=== PATIENT | male | born 1960 | race Caucasian/White ===

== ENCOUNTER 2019-05-17 15:37 | Inpatient (IN) | payer OTHER ==
[2019-05-17] VITALS (37 sets, daily range): BP systolic 164; BP diastolic 120; PULSE 77; TEMP 98.4; O2SAT 70–96
[~2019-05-17] VITALS: Ht 172.7 cm; Wt 99.7 kg
[~2019-05-17 15:37] MED LIST: CATAPRES 0.1MG0.1 MG PO; DAZIDOX10 MG PO; KADIAN100 MG PO; LEVAQUIN 5500 MG/TA1 PO; MS CONTIN100 MG PO; ROXICODONE30 MG PO
[2019-05-17] MEDS ORDERED: XANAX 1MG1 MG PO (16:44)
[2019-05-17 16:59] LABS: BASO % 0.5 % (0.0-2.0); EOS # 0.1 (0.0-0.7); EOS % 0.8 % (0-4.0); GRAN # 5.1 (1.4-6.5); GRAN % 77.3 % (42.2-75.2); HEMATOCRIT 50.8 % (42.0-52.0); HEMOGLOBIN 17.3 g/dl (13.5-18.0); LYMPH # 0.8 (1.2-3.4); LYMPH % 12.7 % (20.0-51.0); MEAN CELL VOLUME 88 fl (80.0-100.0); MEAN CORPUSCULAR HEMOGLOBIN 30 pg (27.0-31.0); MEAN CORPUSCULAR HGB CONC 34 g/dl (33.0-37.0); MEAN PLATELET VOLUME 9.8 fl (7.4-10.4); MONO # 0.6 (0.1-0.6); MONO % 8.5 % (1.7-9.3); PLATELET COUNT 252 K/mm3 (130-400); RED BLOOD COUNT 5.75 M/mm3 (4.20-5.60); REDCELL DISTRIBUTION WIDTH-CV 13.5 % (11.5-14.5)
[2019-05-17 17:11] LABS: ALBUMIN 4.1 gm/dL (3.5-5.0); BILIRUBIN,TOTAL 1.4 mg/dL (0.0-1.0); C-REACTIVE PROTEIN 4.7 mg/dL (0.0-0.9); CALCIUM 8.9 mg/dL (8.4-10.2); CREATININE, serum 1.17 (0.66-1.25); POTASSIUM 4.7 mmol/L (3.4-5.0); TOTAL PROTEIN 7.7 gm/dL (6.4-8.2)
[2019-05-17 17:50] LABS: COLLECTION METHOD CLEAN CATCH
[2019-05-17 17:59] LABS: MUCOUS Present /lpf; PH 6 (5-8); SQUAMOUS EPITHELIAL None Seen /hpf; URINE APPEARANCE Clear; URINE BACTERIA None Seen /hpf; URINE BILIRUBIN Negative (NEGATIVE); URINE BLOOD Negative (NEGATIVE); URINE COLOR Yellow; URINE GLUCOSE 3+ (NEGATIVE); URINE KETONE Trace (NEGATIVE); URINE LEUKOCYTE ESTERASE Negative (NEGATIVE); URINE NITRATE Negative (NEGATIVE); URINE PROTEIN(semi-quant) 2+ (NEGATIVE); URINE RBC 0-2 /hpf; URINE UROBILINOGEN Negative (NEGATIVE)
[2019-05-17] MEDS ORDERED: DAZIDOX10 MG PO (22:56)
[2019-05-17] MEDS ORDERED: PROAIR HFA0.09 MG/AC IH (22:57)
[2019-05-18] VITALS (514 sets, daily range): BP systolic 135–155; BP diastolic 77–95; PULSE 74–93; TEMP 97.5–98.9; O2SAT 85–97
--- NOTE | 2019-05-18 00:21 | NUR ---
PT ADMITTED TO [facility] 17 FROM ED, C/O HEADACHE, AND ABD PAIN, PAIN MED WAS GIVEN. BPs REMAIN ELEVATED, PAIN MEDS AND HYDRALAZINE GIVED. CONSENT SIGHED FOR PROCEDURE IN AM. DAVID HAYDEN CAME TO BED SIDE TO ASSESS. CURRENTLY BP IS 153/95. WILL CONTINUE TO MONITOR PT STATUS AND UPDATE PROVIDERS NEEDED.
[2019-05-18 01:05] LABS: TROPONIN-I < 0.012 ng/mL (0.000-0.035)
[2019-05-18 03:40] LABS: BASO % 0.5 % (0.0-2.0); EOS # 0.1 (0.0-0.7); EOS % 1.1 % (0-4.0); GRAN # 5.2 (1.4-6.5); GRAN % 69.1 % (42.2-75.2); HEMATOCRIT 48.1 % (42.0-52.0); HEMOGLOBIN 16.3 g/dl (13.5-18.0); LYMPH # 1.4 (1.2-3.4); LYMPH % 18.8 % (20.0-51.0); MEAN CELL VOLUME 89 fl (80.0-100.0); MEAN CORPUSCULAR HEMOGLOBIN 30 pg (27.0-31.0); MEAN CORPUSCULAR HGB CONC 34 g/dl (33.0-37.0); MEAN PLATELET VOLUME 9.5 fl (7.4-10.4); MONO # 0.8 (0.1-0.6); MONO % 10.2 % (1.7-9.3); PLATELET COUNT 219 K/mm3 (130-400); RED BLOOD COUNT 5.43 M/mm3 (4.20-5.60); REDCELL DISTRIBUTION WIDTH-CV 13.5 % (11.5-14.5)
[2019-05-18 04:02] LABS: ALBUMIN 3.8 gm/dL (3.5-5.0); BILIRUBIN,TOTAL 1.7 mg/dL (0.0-1.0); CALCIUM 8.4 mg/dL (8.4-10.2); CREATININE, serum 1.21 (0.66-1.25); POTASSIUM 4.1 mmol/L (3.4-5.0); TOTAL PROTEIN 6.9 gm/dL (6.4-8.2)
[2019-05-18 05:10] LABS: INR 1.2 (0.8-3.0); PROTHROMBIN TIME 13.6 SECONDS (9.7-12.8)
--- NOTE | 2019-05-18 07:09 | NUR ---
PT OFF THE UNIT TO OR.
--- NOTE | 2019-05-18 09:33 | NUR ---
OR report received from SCOTT Raymond at this time.
--- NOTE | 2019-05-18 09:45 | NUR ---
Patient returns to [facility] 17 via bed by WELDING MACHINE OPERATOR [employer] with no complications. Vital signs are stable. Full assessment completed. Call light placed within reach. Bed in lowest position. Side rails up x3. Patient states he has some abdominal pain. Abdominal dressing is clean, dry, and intact. Patient has no other complaints or concerns at this time.
--- NOTE | 2019-05-18 13:10 | NUR ---
Patient report given to Chetna, construction grip at this time.
--- NOTE | 2019-05-18 13:45 | NUR ---
Patient transferred to room 325 via wheelchair by RN with no complications. Patient transferred with all personal belongings.
--- NOTE | 2019-05-18 13:50 | NUR ---
arrived on unit per WC from [facility], transferred with standby assist from to bed,
--- NOTE | 2019-05-18 14:15 | NUR ---
full assessment completed, see interventions for further info, medicated with scheduled xanax 1mg, c/o abdominal pain and requesting pain medication, explained it was too early for more roxicodone and requesting something else if ordered
--- NOTE | 2019-05-18 15:00 | NUR ---
medicated with dilaudid 0.25mg slow IV for c/os abdominal pain, watching TV
--- NOTE | 2019-05-18 15:40 | NUR ---
appears to be sleeping, in bed with eyes closed, resp quiet and easy
--- NOTE | 2019-05-18 17:15 | NUR ---
c/o pain to abdomen and back, medicated with roxicodone 40mg po, has supper tray and will try to eat but states he will need to wait until pain has decreased
--- NOTE | 2019-05-18 18:15 | NUR ---
is requesting inhaler, cardiopulmonary notified
--- NOTE | 2019-05-18 18:59 | NUR ---
bedside shift report given to SCOTT Pichardo
--- NOTE | 2019-05-18 21:14 | NUR ---
Patient medicated with IV Dilaudid 0.25mg for abdominal pain 03/02. Takes walk in hallway with surgical staff and does well. IVF to right AC without redness or swelling.
--- NOTE | 2019-05-18 23:22 | NUR ---
Reports pain to abdomen and back 03/02, asking for Oxycodone. Medicated at this time with 40mg po. IVF infusing to right AC without redness or swelling.
[2019-05-19 03:20] VITALS: BP 133/80; PULSE 62; TEMP 98.1
--- NOTE | 2019-05-19 03:35 | NUR ---
Patient reports pain 9/10 to abdomen. Medicated with IV Dilaudid 0.25mg at this time.
--- NOTE | 2019-05-19 04:31 | NUR ---
Patient asking for more pain meds as he coughed and didn't splint his abdomen. Too early for pain meds at this time. Will bring Oxycodone at 0520. Patient verbalizes understanding.
--- NOTE | 2019-05-19 05:20 | NUR ---
Medicated with Oxycodone 40mg po at this time for pain 9/10 to abdomen.
[2019-05-19 07:37] LABS: GRAN % 83.4 % (42.2-75.2); HEMATOCRIT 46.9 % (42.0-52.0); HEMOGLOBIN 15.7 g/dl (13.5-18.0); LYMPH # 0.8 (1.2-3.4); LYMPH % 9.2 % (20.0-51.0); MEAN CELL VOLUME 90 fl (80.0-100.0); MEAN CORPUSCULAR HEMOGLOBIN 30 pg (27.0-31.0); MEAN CORPUSCULAR HGB CONC 34 g/dl (33.0-37.0); MEAN PLATELET VOLUME 9.9 fl (7.4-10.4); MONO # 0.6 (0.1-0.6); MONO % 6.9 % (1.7-9.3); PLATELET COUNT 240 K/mm3 (130-400); RED BLOOD COUNT 5.21 M/mm3 (4.20-5.60); REDCELL DISTRIBUTION WIDTH-CV 13.2 % (11.5-14.5)
[2019-05-19 07:54] VITALS: BP 169/96; PULSE 94; TEMP 98.5
[2019-05-19 07:57] LABS: ALBUMIN 3.8 gm/dL (3.5-5.0); BILIRUBIN,TOTAL 1.5 mg/dL (0.0-1.0); CALCIUM 8.1 mg/dL (8.4-10.2); CREATININE, serum 1.22 (0.66-1.25); POTASSIUM 4.4 mmol/L (3.4-5.0)
[2019-05-19] MEDS ORDERED: METFORMIN PO (10:53)
[2019-05-19] MEDS ORDERED: DAZIDOX10 MG PO ×2 (10:56→12:59)
[2019-05-19] MEDS ORDERED: AMOXICILLIN 8751 TAB PO (10:56)
[2019-05-19 11:22] VITALS: BP 181/115; PULSE 84; TEMP 97.8
[2019-05-19] MEDS ORDERED: MOTRIN 600600 MG/TAB PO (12:39)
[2019-05-19] MEDS ORDERED: DILAUDID 2MG TAB2 MG PO (12:39)
--- NOTE | 2019-05-19 13:35 | NUR ---
Clinical Education Coordinator met with patient to discuss discharge planning. Patient expresses he is ready to go home and his son, Wayne can only pick him up if it's before 1:00pm. Patient states he receives primary care services from [facility] in [place]. Patient reports his medications are delievered to his home in [place], [place] by the [facility]. Patient reports he does obtain one medication from [facility] pharmacy but that he wants to switch pharmacies soon. Patient has a knee brace and crutch that he occasionally uses as needed. Patient does not have advance directives and was not interested in setting up DPOA-HC at this time. Patient plans to return home upon discharge.
--- NOTE | 2019-05-19 13:39 | NUR ---
[employer] Systems Superintendent attended clinical rounds with the team. Patient ready to discharge pending being seen by Dr. Smith. Patient is working with his son to arrange transportation. Patient to return home upon discharge.
--- NOTE | 2019-05-19 13:45 | NUR ---
Patient's main complaint today has been pain. Patient is a chronic pain patient, he has a long history of narcotic use. Hospitalist team & aware of pain medication complaints & usage. Hospitalist team had a long discussion with patient & stressed the [facility] scheduled regaurding blood pressure,(he did not want to take medication in the hospital to manage BP) diabeties- patient going to resume his home metformin-however he is unsure of dosage. Patient frustrated & upset doctors will not prescribe him and extra oxycodone-educated him on seeing his PCP who he reports prescribes him his large dosages. Once again hospitalist & notified & made aware of his frustrations. Patient send with Dilaudid script as ordered. I stressed the importance of medication safety, patient not interested in hearing my discharge teaching, he was more concerned with his narcotics. Patient aware he needs to be seen in 2 weeks to follow up with surgery. Incisions care & signs & symptoms of infection discussed. New dressing applied to umbilical saud. Int DC. Patient wheeled out with all belongings, MOLDER CLOSED MOLDS walked him out, His sone taking him home.
== END 2019-05-19 15:18 | disposition home or self-care (01) | DRG 354 ==
LOC: COL.ER 15:37 → IMCU 19:54 → SURG 05-18 13:45
PROVIDERS: Emergency Medicine; Nurse Practitioner Family; Physician Assistant; Surgery; ADMIT Student in an Organized Health Care Education/Training Program
PROC: 0WPF0JZ Removal of Synthetic Substitute from Abdominal Wall, Open Approach (ICD-10-PCS; 2019-05-18)
PROC: 0WQF0ZZ Repair Abdominal Wall, Open Approach (ICD-10-PCS; principal; 2019-05-18 07:30)
DX: K42.0 Umbilical hernia with obstruction, without gangrene (principal); L02.211 Cutaneous abscess of abdominal wall; T81.31XA Disruption of external operation (surgical) wound, not elsewhere classified, initial encounter; K91.870 Postprocedural hematoma of a digestive system organ or structure following a digestive system procedure; I10 Essential (primary) hypertension; E11.65 Type 2 diabetes mellitus with hyperglycemia; I16.0 Hypertensive urgency; G89.29 Other chronic pain; Z88.5 Allergy status to narcotic agent; Z88.8 Allergy status to other drugs, medicaments and biological substances; Z86.14 Personal history of Methicillin resistant Staphylococcus aureus infection
CPT/HCPCS: 99222-AI; 99239; J0360; J0690; J1100; J1170; J1815; J1885; J2250; J2405; J2543; J2704; J3010; J7030; Q9967

== ENCOUNTER 2019-12-01 20:37 | Emergency (ER) | payer OTHER ==
[~2019-12-01] VITALS: Ht 172.7 cm; Wt 90.9 kg
[~2019-12-01 20:37] MED LIST changes: +AMOXICILLIN 8751 TAB PO; +DILAUDID 2MG TAB2 MG PO; +METFORMIN PO; +MOTRIN 600600 MG/TAB PO; +PROAIR HFA0.09 MG/AC IH; +XANAX 1MG1 MG PO
[2019-12-01 21:03] VITALS: TEMP 98.6
[2019-12-01] MEDS ORDERED: BLOOD PRESSURE MED PO (22:03)
[2019-12-01 22:04] VITALS: BP 188/141; PULSE 100
[2019-12-01] MEDS ORDERED: DOXYCYCLINE 10100 MG PO (22:08)
== END 2019-12-01 22:09 | disposition home or self-care (01) ==
LOC: COL.ER 20:37
DX: S50.861A Insect bite (nonvenomous) of right forearm, initial encounter (principal); I10 Essential (primary) hypertension; F43.10 Post-traumatic stress disorder, unspecified; Z91.14 Patient's other noncompliance with medication regimen; W57.XXXA Bitten or stung by nonvenomous insect and other nonvenomous arthropods, initial encounter

== ENCOUNTER 2019-12-04 22:11 | Inpatient (IN) | payer OTHER ==
[~2019-12-04] VITALS: Ht 172.7 cm; Wt 91.2 kg
[~2019-12-04 22:11] MED LIST changes: +BLOOD PRESSURE MED PO; +DOXYCYCLINE 10100 MG PO
[2019-12-04 22:54] LABS: MEAN CELL VOLUME 81 fl (80.0-100.0); MEAN CORPUSCULAR HGB CONC 36 g/dl (33.0-37.0); MEAN PLATELET VOLUME 9.7 fl (7.4-10.4); PLATELET COUNT 305 K/mm3 (130-400); RED BLOOD COUNT 6.76 M/mm3 (4.20-5.60); REDCELL DISTRIBUTION WIDTH-CV 13.2 % (11.5-14.5)
[2019-12-04 22:59] LABS: HEMATOCRIT 54.8 % (42.0-52.0); HEMOGLOBIN 19.9 g/dl (13.5-18.0); MEAN CORPUSCULAR HEMOGLOBIN 29 pg (27.0-31.0)
[2019-12-04 23:06] LABS: ALBUMIN 4.6 gm/dL (3.5-5.0); BILIRUBIN,TOTAL 4.2 mg/dL (0.0-1.0); C-REACTIVE PROTEIN 1.7 mg/dL (0.0-0.9); CALCIUM 11.5 mg/dL (8.4-10.2); POTASSIUM 3.6 mmol/L (3.4-5.0); TOTAL PROTEIN 8.1 gm/dL (6.4-8.2)
[2019-12-04 23:12] LABS: HEMOGLOBIN A1C 8.9 %
[2019-12-04 23:23] LABS: LYMPHOCYTE 12 % (20.0-51.0); NEUTROPHILS 80 % (42.0-75.2); PLATELET ESTIMATE NORMAL (NORMAL)
[2019-12-04 23:32] LABS: TROPONIN-I 0.064 ng/mL (0.000-0.035)
[2019-12-04 23:43] LABS: MAGNESIUM 1.3 mg/dL (1.6-2.3); PHOSPHOROUS 5.3 mg/dL (2.5-4.5)
[2019-12-04 23:51] LABS: LACTIC ACID 2.7 mmol/L (0.4-2.0)
[2019-12-04 23:53] LABS: ALCOHOL(ethanol),MEDICAL < 10 mg/dL
[2019-12-05] VITALS (1121 sets, daily range): BP systolic 114–160; BP diastolic 84–95; PULSE 85–107; TEMP 97.9–98.5; O2SAT 77–99
[2019-12-05 00:39] LABS: ARTERIAL BLD GAS O2 SATURATION 94.5 % (92-100); ARTERIAL BLOOD GAS BASE EXCESS 1.5 (-2-2); ARTERIAL BLOOD GAS PCO2 32.7 mmHg (35-45); ARTERIAL BLOOD GAS PO2 70.8 mmHg (80-100); ARTERIAL BLOOD GAS pH 7.48 (7.35-7.45)
--- NOTE | 2019-12-05 01:45 | NUR ---
Patient arrived to the unit via stretcher; able to self transfer to ICU bed. Pleasant with staff however, has made comments to nurse such as the "feds are following me, but you know that already". This nurse stated she did not know that and patient stated "yes you do, but that's ok". Patient has also made other comments suggesting paranoia. Patient is otherwise alert and oriented. Hospitalist notified of patients comments. Will continue to monitor.
[2019-12-05 02:41] LABS: CALCIUM 10.4 mg/dL (8.4-10.2); CREATININE, serum 2.79 (0.66-1.25); POTASSIUM 3.5 mmol/L (3.4-5.0)
[2019-12-05 02:51] LABS: CREATININE, serum 2.8 (0.66-1.25)
[2019-12-05 02:53] LABS: TROPONIN-I 0.051 ng/mL (0.000-0.035)
[2019-12-05 02:53] LABS: COLLECTION METHOD CLEAN CATCH
--- NOTE | 2019-12-05 03:04 | NUR ---
Updated hospitalist regarding latest labs and patient status. Hospitalist to review chart.
[2019-12-05 03:07] LABS: HYALINE CAST >12 /lpf; MUCOUS Present /lpf; PH 5 (5-8); SQUAMOUS EPITHELIAL 0-2 /hpf; URINE APPEARANCE Cloudy; URINE BACTERIA Rare /hpf; URINE BILIRUBIN Negative (NEGATIVE); URINE BLOOD 2+ (NEGATIVE); URINE COLOR Amber; URINE GLUCOSE 2+ (NEGATIVE); URINE KETONE Trace (NEGATIVE); URINE LEUKOCYTE ESTERASE Negative (NEGATIVE); URINE NITRATE Negative (NEGATIVE); URINE PROTEIN(semi-quant) 2+ (NEGATIVE); URINE RBC 0-2 /hpf; URINE UROBILINOGEN Negative (NEGATIVE)
[2019-12-05 03:08] LABS: TRICYCLIC ANTIDEPRESS URINE NEGATIVE
[2019-12-05 03:24] LABS: FRACTIONAL EXCRETION OF NA+ 0.14 %
[2019-12-05] MEDS ORDERED: 00186-0370-20 IH (03:39)
[2019-12-05 05:44] LABS: BASO % 0.3 % (0.0-2.0); EOS % 0.3 % (0-4.0); GRAN # 7.5 (1.4-6.5); GRAN % 68.5 % (42.2-75.2); HEMATOCRIT 49.6 % (42.0-52.0); LYMPH # 2.1 (1.2-3.4); MEAN CELL VOLUME 82 fl (80.0-100.0); MEAN CORPUSCULAR HEMOGLOBIN 30 pg (27.0-31.0); MEAN CORPUSCULAR HGB CONC 36 g/dl (33.0-37.0); MEAN PLATELET VOLUME 9.9 fl (7.4-10.4); MONO # 1.2 (0.1-0.6); MONO % 11.3 % (1.7-9.3); PLATELET COUNT 248 K/mm3 (130-400); RED BLOOD COUNT 6.05 M/mm3 (4.20-5.60); REDCELL DISTRIBUTION WIDTH-CV 12.9 % (11.5-14.5)
[2019-12-05 05:55] LABS: CALCIUM 9.7 mg/dL (8.4-10.2); CREATININE, serum 2.58 (0.66-1.25); PHOSPHOROUS 3.8 mg/dL (2.5-4.5)
[2019-12-05 06:07] LABS: TROPONIN-I 0.044 ng/mL (0.000-0.035)
--- NOTE | 2019-12-05 06:16 | NUR ---
Called hospitalist regarding morning labs. Will start potassium replacement. Ok with current rise in sodium level.
--- NOTE | 2019-12-05 08:00 | NUR ---
Shift assessment complete at this time. Plan of care reviewed at bedside with patient. Additional time taken to address any other needs or concerns. Vitals stable at this time. Pt reports chronic pain of 7-8/10 severity in lower back and neck. Pt reports typically taking 40 mg of oxycodone every 6 hours at home for chronic pain and alprazolam for anxiety. Neither med is currently on Pt's eMAR and physician will be promptly contacted for potential of restarting meds or equivalents. Bed in low position, call light within reach, will continue to monitor.
--- NOTE | 2019-12-05 10:00 | NUR ---
Pt currently refuses lab draws at this time. Attending physician notified and aware.
--- NOTE | 2019-12-05 12:00 | NUR ---
Pt resting in bed at this time. Vitals stable. Pt reports pain is slightly improved after administration of home oxycodone dose per orders. Pt displays some increased levels of paranoia towards staff and makes accusations that people are hiding under the nursing desks and mocking his career. Pt also refuses to recieve insulin injection for correction of elevated blood glucose. Pt states that he does not trust the glucometer or staff that either is telling the truth about his blood glucose. Additionally, Pt has been observed to be experiencing auditory and visual hallucinations by talking to the corner of the room as if someone were standing there having a conversation with him. Will continue to monitor, call light within reach, bed in low position.
--- NOTE | 2019-12-05 13:10 | NUR ---
Pt willing to allow lab draws at this time. Pt states to this RN that he "knows we can't hold himself her against his will and can leave whenever I want". Pt then further clarifies that he does not wish to leave until his "fogginess" is improved. Pt was willing to allow lab draws to help assess for improvement of his "fogginess", will continue to monitor.
[2019-12-05 13:39] LABS: CALCIUM 9.3 mg/dL (8.4-10.2); CREATININE, serum 2.07 (0.66-1.25); POTASSIUM 3.5 mmol/L (3.4-5.0)
--- NOTE | 2019-12-05 14:05 | NUR ---
Pt reports hearing laughing at his expense from outside his room. No staff other than this RN present in vicinity of room at this time. Pt states that the voices are "mocking his former status as a [employer]". Afterwards, Pt continues to shout in a sarcastic and mocking tone, paraphrasining the "degrading statements" that are being made by the "voices outside the room".
--- NOTE | 2019-12-05 16:00 | NUR ---
Pt resting comfortably in bed. Reports no changes to pain and states that it is below his pain goal of 7 for his chronic pain. Vitals stable at this time. Pt refusing accucheck fingerstick and any sliding-scale associated insulin coverage at this time. Bed in low position, call light within reach, will continue to monitor.
--- NOTE | 2019-12-05 16:50 | NUR ---
MULTIPLE ATTEMPTS TO GET EKG ON PT. PT IS COMBATIVE AND AGITATED. UNABLE TO KEEP EKG LEADS CONNECTED TO PT. RN AND MD AWARE. WILL ATTEMPT WHEN PT IS MORE SETTLED.
--- NOTE | 2019-12-05 20:15 | NUR ---
Assessment complete; vs stable. Patient is alert and oriented, but has some paranoia and delusions noted. Patient is suspicious that people are talking about him and appeared to talk to someone who was not in the room at one point during the assessment. Patient is otherwise aware of his surroundings and responds appropriately to questions. Staff attempts to re-direct during times of paranoia. Will continue to monitor.
[2019-12-05 22:32] LABS: CALCIUM 9.3 mg/dL (8.4-10.2); CREATININE, serum 1.79 (0.66-1.25); POTASSIUM 3.5 mmol/L (3.4-5.0)
[2019-12-06] VITALS (399 sets, daily range): BP systolic 93–150; BP diastolic 63–85; PULSE 71–105; TEMP 98–99; O2SAT 72–99
[2019-12-06 06:09] LABS: BASO % 0.5 % (0.0-2.0); EOS # 0.1 (0.0-0.7); EOS % 1.5 % (0-4.0); GRAN # 3.6 (1.4-6.5); GRAN % 65.3 % (42.2-75.2); HEMATOCRIT 46.8 % (42.0-52.0); HEMOGLOBIN 16.3 g/dl (13.5-18.0); LYMPH # 1.2 (1.2-3.4); MEAN CELL VOLUME 84 fl (80.0-100.0); MEAN CORPUSCULAR HEMOGLOBIN 29 pg (27.0-31.0); MEAN CORPUSCULAR HGB CONC 35 g/dl (33.0-37.0); MEAN PLATELET VOLUME 9.5 fl (7.4-10.4); MONO # 0.6 (0.1-0.6); MONO % 11.2 % (1.7-9.3); PLATELET COUNT 180 K/mm3 (130-400); RED BLOOD COUNT 5.57 M/mm3 (4.20-5.60); REDCELL DISTRIBUTION WIDTH-CV 12.9 % (11.5-14.5)
[2019-12-06 06:19] LABS: ALBUMIN 3.4 gm/dL (3.5-5.0); BILIRUBIN,TOTAL 2.7 mg/dL (0.0-1.0); CALCIUM 8.9 mg/dL (8.4-10.2); CREATININE, serum 1.5 (0.66-1.25); MAGNESIUM 1.8 mg/dL (1.6-2.3); PHOSPHOROUS 2.3 mg/dL (2.5-4.5); POTASSIUM 3.4 mmol/L (3.4-5.0); TOTAL PROTEIN 6.3 gm/dL (6.4-8.2)
[2019-12-06 07:05] LABS: BILIRUBIN UNCONJUGATED 2.6 mg/dL (0.0-1.1); BILIRUBIN,DIRECT 0.1 mg/dL (0.0-0.4)
--- NOTE | 2019-12-06 07:50 | NUR ---
Report received from Lilia CHAVEZ and care resumed.
--- NOTE | 2019-12-06 08:22 | NUR ---
Pt restless upon assessment. Has IV tubing kinked off in hand and stating he "doesn't like what you're putting in me and I want the IV out." Explained to pt that we were giving him normal saline due to his sodium levels being low. Pt stating "no you gave me something and I don't like how it's making me feel." Again tried assuring pt that it was only normal saline running and that I had not given him any other medication. Did offer pt am aspirin which he took. Potassium replacement protocol ordered. Pt refusing at this time. Pt did allow me to do assessment. Will continue to follow.
--- NOTE | 2019-12-06 08:56 | NUR ---
Dr Lin in to see pt at this time. I was able to contact [facility] and they should be faxing over updated med list for pt.
--- NOTE | 2019-12-06 09:26 | NUR ---
Attempted to obtain release of info from patient but he is refusing to sign at this time. States we do not need to know his medical history. Also hallucinating and says there is a picture of his ex and boys smiling and waving at him on the wall and they are just trying to get to him as much as they can. Pt states he wants to leave and no longer wants treatment at this time. Dr Lin was updated.
--- NOTE | 2019-12-06 12:08 | NUR ---
First visit from the paper products printer. No needs right now.
--- NOTE | 2019-12-06 13:26 | NUR ---
Conductor Yard met with patient to complete initial intake. Patient lives alone in [place], [place] and sees Dr. Yang at the [facility] for primary care. Patient has his medications mailed to him by the [facility]. Patient uses a nebulizer and no other DME. Patient reports independence with ADLS. Patient does not have Advance Directives and does not want to provide an emergency contact. SW asked patient for his son, Wayne's phone number and patient refused. Patient states he has Wayne's number in his phone but does not think it's necessary he share it. SW contacted number on file [phone] multiple times and number is not active. Patient states he wants to leave and plans to drive himself home at discharge. Patient has had a psych consult. Per Hospitalist's request, BOBBY contacted the [facility] and requested medical history and medications. [facility] faxed over records and BOBBY provided them to Hospitalist. BOBBY was advised that the only contact information they have is a partial number for patient's mother Carolyne (ph#[phone]) who lives in [place] and a number for patient's ex- Cynthia (ph#[phone]). BOBBY left a message for [place] [employer] and will continue to follow.
--- NOTE | 2019-12-06 15:54 | NUR ---
Patient leaving AMA. Car Groomer made report to APS. Intake #[id number].
--- NOTE | 2019-12-06 15:55 | NUR ---
Pt given discharge instructions after IV was dc'd and pt taken off monitor. Pt dressed and requested to walk out for discharge at 1555.
--- NOTE | 2019-12-07 10:03 | NUR ---
Senior Teller spoke with BOBBY Pagan at the [facility] who advised she was not familiar with patient but that she will follow up with him by phone.
== END 2019-12-06 15:55 | disposition home or self-care (01) | DRG 885 ==
LOC: COL.ER 22:11 → ICU 12-05 00:50
PROVIDERS: Nurse Practitioner Primary Care; Physician Assistant; ADMIT Hospitalist
DX: F29 Unspecified psychosis not due to a substance or known physiological condition (principal); I21.4 Non-ST elevation (NSTEMI) myocardial infarction; E87.1 Hypo-osmolality and hyponatremia; N17.9 Acute kidney failure, unspecified; R65.10 Systemic inflammatory response syndrome (SIRS) of non-infectious origin without acute organ dysfunction; I10 Essential (primary) hypertension; F43.10 Post-traumatic stress disorder, unspecified; G89.29 Other chronic pain; E87.8 Other disorders of electrolyte and fluid balance, not elsewhere classified; E11.65 Type 2 diabetes mellitus with hyperglycemia; K59.00 Constipation, unspecified; E83.52 Hypercalcemia; F41.9 Anxiety disorder, unspecified; E83.41 Hypermagnesemia; E83.39 Other disorders of phosphorus metabolism; Z88.1 Allergy status to other antibiotic agents
CPT/HCPCS: 99223-AI; 99233-AI; 99239; J1650; J1815; J3475; J3480; J7030

== ENCOUNTER 2019-12-11 13:24 | Emergency (ER) | payer OTHER ==
[~2019-12-11] VITALS: Ht 172.7 cm; Wt 90.9 kg
[~2019-12-11 13:24] MED LIST changes: +00186-0370-20 IH
[2019-12-11 13:29] VITALS: TEMP 98.1
[2019-12-11] MEDS ORDERED: PRINIVIL20 MG PO (13:44)
[2019-12-11 15:07] LABS: BASO % 0.5 % (0.0-2.0); EOS # 0.1 (0.0-0.7); EOS % 0.9 % (0-4.0); GRAN # 3.9 (1.4-6.5); GRAN % 65.8 % (42.2-75.2); HEMATOCRIT 50.5 % (42.0-52.0); HEMOGLOBIN 17.8 g/dl (13.5-18.0); LYMPH % 17.7 % (20.0-51.0); MEAN CELL VOLUME 84 fl (80.0-100.0); MEAN CORPUSCULAR HEMOGLOBIN 29 pg (27.0-31.0); MEAN CORPUSCULAR HGB CONC 35 g/dl (33.0-37.0); MEAN PLATELET VOLUME 9.8 fl (7.4-10.4); MONO # 0.9 (0.1-0.6); MONO % 14.8 % (1.7-9.3); PLATELET COUNT 252 K/mm3 (130-400); RED BLOOD COUNT 6.05 M/mm3 (4.20-5.60); REDCELL DISTRIBUTION WIDTH-CV 12.6 % (11.5-14.5)
[2019-12-11] MEDS ORDERED: XANAX 1MG1 MG PO (15:08)
[2019-12-11 15:15] LABS: ALBUMIN 4.4 gm/dL (3.5-5.0); BILIRUBIN,TOTAL 2.8 mg/dL (0.0-1.0); CALCIUM 9.4 mg/dL (8.4-10.2); CREATININE, serum 1.57 (0.66-1.25); POTASSIUM 3.4 mmol/L (3.4-5.0); TOTAL PROTEIN 7.7 gm/dL (6.4-8.2)
[2019-12-11 15:31] LABS: PROLACTIN 14.5 ng/mL (3.7-17.9)
[2019-12-11 16:09] VITALS: BP 120/91; PULSE 93
== END 2019-12-11 16:09 | disposition home or self-care (01) ==
LOC: COL.ER 13:24
PROVIDERS: Physician Assistant
DX: R41.82 Altered mental status, unspecified (principal); F41.9 Anxiety disorder, unspecified; F43.12 Post-traumatic stress disorder, chronic; R56.9 Unspecified convulsions; I10 Essential (primary) hypertension

== ENCOUNTER → 2020-03-13 | Outpatient (CLI) | payer OTHER ==
[~2020-03-13] MED LIST changes: +PRINIVIL20 MG PO
== END ==
LOC: BHSO 13:02
DX: F41.1 Generalized anxiety disorder (principal)

== ENCOUNTER → 2020-11-24 | Outpatient (REF) | LOC: COL.LAB 23:27 | DX: Z01.89 Encounter for other specified special examinations (principal) ==